=== PATIENT | female | born 1975 | race Caucasian/White ===

== ENCOUNTER → 2017-08-02 | Outpatient (CLI) | payer BC ==
[2017-08-02] MEDS: GADOBUTROL 7.5 MMOL/7.5 ML VIAL IV (17:12)
== END | disposition home or self-care (01) ==
LOC: KCIC MRI 16:11
DX: N36.1 Urethral diverticulum (principal); R25.2 Cramp and spasm
CPT/HCPCS: 72197; A9585